=== PATIENT | female | born 1995 | race Caucasian/White ===

== ENCOUNTER 2016-06-12 18:25 | Emergency (ER) | payer MEDICAID ==
[2016-06-12 18:52] VITALS: BP 154/104
[2016-06-12] MEDS ORDERED: XOPENEX 1.25 MG/3 ML NEB ONE ×2 (18:55→19:14)
--- NOTE | 2016-06-12 19:03 | DR.GENAD ---
HPI - PCP Primary Care Physician: JESSE - Complaint/Symptoms Chief Complaint Doctors Comments: Patient and other family members with upper respiratory infection for since . Patient with a hsitory of asthma. Chief Complaint:: PT HAVING C/C/C WHEEZING - Source History Provided: Patient, Parent - Mode of Arrival Mode of Arrival: Ambulatory - Timing Onset of Chief Complaint: 06/10/16 PMH - PMH Past Medical History: Yes Past Medical History: COPD, Seizures Past Medical History Comment: CEREBAL PALSY Past Surgical History: Yes Past Surgical History Comment: TMJ - Family History History of Family Medical Conditions: Yes Family Medical History: Diabetes Mellitus - Social History Does patient currently use any type of tobacco product: No Have you used tobacco products in the last 12 months: No Type of Tobacco Use: None Does any household member use tobacco: No Alcohol Use: None Do you use any recreational Drugs:: No Lives With: Family Lives Where: Home - infectious screening In the last 2 months have you had wt loss of >10#?: NO Have you had fever, night sweats or hemotysis?: No Have you traveled outside the country in the last 6 months?: No Isolation: Standard ROS - Review of Systems Constitutional: No Symptoms Reported Eyes: No Symptoms Reported ENTM: No Symptoms Reported Respiratoy: No Symptoms Reported Cardiovascular: No Symptoms Reported Gastrointestinal/Abdominal: No Symptoms Reported Genitourinary: No Symptoms Reported Neurological: No Symptoms Reported Musculoskeletal: No Symptoms Reported Integumentary: No Symptoms Reported Hematologic/Lymphatic: No Symptoms Reported Endocrine: No Symptoms Reported Psychiatric: No Symptoms Reported All Other Systems: Reviewed and Negative PE - Vital Signs Vitals: Temperature 98.9 F Pulse Rate 102 Respiratory Rate 28 Blood Pressure 154/104 O2 Sat by Pulse Oximetry 94 - General Limitations: No Limitations General Appearance: Alert, In No Apparent Distress - Head Head Exam: Normal Inspection, Atraumatic - Eyes Eye exam: Normal Appearance, PERRL, EOMI - ENT ENT Exam: Normal Exam External Ear Exam: Normal External Inspection TM/Canal Exam: Bilateral Normal Nose Exam: Normal Nose Exam Mouth Exam: Normal Inspection Throat Exam: Normal Inspection - Neck Neck Exam: Normal Inspection - Chest Chest Inspection: Normal Inspection - Respiratory Respiratory Exam: Normal Lung Sounds Bilat Respiratory Exam: Bilateral Wheezing - Cardiovascular Cardiovascular Exam: Regular Rate - Abdominal Exam Abdominal Exam: Normal Inspection Abdominal Tenderness: negative: RUQ, RLQ, LUQ, LLQ, Epigastrium, Suprapubic, Diffuse, Mild, Moderate, Severe, Other - Extremities Extremities Exam: Normal Inspection - Back Back Exam: Normal Inspection - Neurologic Neurological Exam: Alert, Oriented X3, CN II-XII Intact - Skin Skin Exam: Warm, Dry, Intact Course - Reevaluation 1st: Improved ROR - Labs Reviewed Laboratory Results Reviewed?: Yes (Influenza pending) - XRAY XRAY Interpreted by: Radiologist (Chest: negative) - Diagnosis Discharge Problem: Asthma without status asthmaticus or acute exacerbation - Discharge Plan Condition: Stable - Follow ups/Referrals Follow ups/Referrals: DEMETRIUS MOLINA [Primary Care Provider] - 3 days - Instructions
[2016-06-12] MEDS ORDERED: DECADRON JET NEB NEB ONE (19:14)
--- NOTE | 2016-06-12 19:40 | RAD ---
Chest AP portable Indication: Wheezing. Decreasing oxygen saturation. Comparison: None currently available Findings: There is no pneumothorax, effusion or consolidation. Heart size is normal for technique. B abimbola habitus limits sensitivity somewhat. Impression: No acute chest process seen. Followup with PA and lateral chest as needed. Reported By:
== END 2016-06-12 21:07 | disposition home or self-care (01) ==
LOC: ER 19:00
DX: J45.909 Unspecified asthma, uncomplicated (principal)
CPT/HCPCS: 71010; 87502; 87503; 94640; 99283